=== PATIENT | female | born 1995 | race Caucasian/White ===

== ENCOUNTER 2020-12-13 05:02 | Inpatient (IN) | payer BC, SELFPAY ==
[2020-12-13] VITALS (60 sets, daily range): BP systolic 89–157; BP diastolic 26–105; PULSE 66–166; RESP 12–81; TEMP 36.1–36.9; O2SAT 80–100; BMI 39.1
[2020-12-13] MEDS: AMPICILLIN 2 GM/NS 100 ML 2 GM/100 ML BAG IVPB (05:31)
[2020-12-13] MEDS: LACTATED RINGERS 1,000 ML 125 ML IV CONT ×2 (05:31→09:03)
--- NOTE | 2020-12-13 05:34 | LDADM ---
This patient, Shu Rivas, was admitted to Labor/Delivery/Recovery 103 on 12/13/20 at 05:02. Plans for labor, pain management and were discussed with patient. Patient/family oriented to hospital policies and general routines including ID bracelet, bed and alarms, visiting hours, pain management, procedures, bathroom and other care routines, personal items, smoking policy, room service/diet and guest tray routines, security routines, and visiting hours. Patient/Family are encouraged to report perceived risks to care and to ask questions if they do not understand what they are told or what they should do. See OBIX for further documentation.
[2020-12-13 05:44] LABS: Basophils Percent Auto 0.3 % (0.2-1.2); Eosinophils Percent Auto 0.2 % (0-4.4); Hematocrit 31.8 % (37.0-47.0); Hemoglobin 9.7 g/dL (12.0-15.0); Immature Granulocyte Absolute 0.08 K/mm3 (0.00-0.031); Immature Granulocyte Percent A 0.8 % (0-0.5); Lymphocytes Absolute Auto 2.68 K/mm3 (0.9-3.2); Lymphocytes Percent Auto 25.8 % (18.3-44.2); Mean Corpuscular HGB Conc 30.5 g/dl (32-36); Mean Corpuscular Hemoglobin 21.6 pg (26-34); Mean Corpuscular Volume 70.8 fl (80-100); Mean Platelet Volume 10.5 fl (7.4-10.4); Monocytes Absolute Auto 0.7 K/mm3 (0.1-0.6); Neutrophils Absolute Auto 6.9 K/mm3 (1.3-6.7); Neutrophils Percent Auto 65.9 % (45.5-73.1); Platelet Count Result 284 k/mm3 (150-375); Red Blood Count 4.49 M/mm3 (4.2-5.4); Red Cell Distribution Width 17.4 % (11.5-14.5); White Blood Count 10.4 K/mm3 (4.5-10.0)
[2020-12-13] MEDS: OXYTOCIN 30 UNITS/NS 500 ML 30 UNITS/500 ML BAG IV CONT (05:48)
--- NOTE | 2020-12-13 07:44 | PM.IMHP ---
H&P: HPI History of Present Illness Date/Time: 12/13/20 07:44 25-year-old 2 para 1 whose last menstrual period was 03/13/2020, EDC is 12/18/2020, of presents had to 30 weeks gestation for induction labor is positive strep with favorable cervix she had a 6 week ultrasound confirming dates Chief Complaint: term with positive group B strep Review of Systems Review of Systems: All systems reviewed & are unremarkable except as noted in HPI and below PMFSH Family History Family History Father Hypertension Social History Social History Smoking status: Never smoker Second hand tobacco smoke exposure: No Substance use: never Gender identity (if verbalized by the patient): Female Spiritual care concerns: No Meds Home Medications and Allergies Home Medications Medication Instructions Recorded Confirmed Type PNV cmb#95-ferrous fumarate-FA 1 tablet PO DAILY 11/22/20 11/22/20 History [] ergocalciferol (vitamin D2) 1,250 mcg PO WEEKLY 11/22/20 11/22/20 History [Vitamin D2] Allergies Allergy/AdvReac Type Severity Reaction Status Date / Time Sulfa (Sulfonamide Allergy Intermediate RASH Verified 04/23/19 12:35 Antibiotics) Vital Signs Vital Signs - 24 hr 12/13/20 05:17 12/13/20 05:32 12/13/20 06:01 Temperature 97.2 F L Pulse Rate 78 73 Blood Pressure 129/79 127/85 12/13/20 06:31 12/13/20 07:01 12/13/20 07:31 Temperature Pulse Rate 76 70 67 Blood Pressure 129/88 134/86 129/83 12/13/20 07:42 Temperature 97.3 F L Pulse Rate Blood Pressure Exam Const: General: no acute distress Eyes: General: appearance normal, both eyes and all related structures Neck: Neck: supple and no JVD Thyroid: thyroid normal Resp: Effort & Inspection: normal respiratory effort Auscultation: clear to auscultation bilaterally Cardio: Rate: regular rate Rhythm: regular rhythm GI: Inspection: non-distended GI Palp: Yes Soft to palpation, No Tenderness to palpation present (GI) and No Guarding due to palpation present (GI) Auscultation: normal bowel sounds : External Female Exam: normal external appearance Speculum Exam - Vagina: normal appearance of the vagina Speculum Exam - Cervix: Cervical os closed ( cervix 3.5/75/1. AROM clear. FHTs reassuring) Skin: General skin exam: no rashes or lesions noted Extrem: General: normal to inspection and no edema Psych: Mental Status: mental status grossly normal Affect: normal affect H&P: Results Labs Labs: Short CBC 12/13/20 Range/Units 05:27 WBC 10.4 H (4.5-10.0) K/mm3 Hgb 9.7 L (12.0-15.0) g/dL Hct 31.8 L (37.0-47.0) % Plt Count 284 (150-375) k/mm3 Assessment and Plan Additional Plan impression: Term with positive group B strep and favorable cervix Plan: Medical induction of labor. Group B strep prophylaxis. Spontaneous vaginal delivery is expected. She has an epidural candidate
--- NOTE | 2020-12-13 07:50 | WPDANESEPPF ---
Anes - Initial Pre Proc Eval Procedure: labor epidural Date/Time: 12/13/20 07:50 Surgeon: Serg Montano MD Pre Op Diagnosis: IOL Patient Data Age: 25 Gender: F Height: 1.68 m Weight: 110 kg Last Vital Signs Temp 36.3 C L 12/13/20 07:42 Pulse 67 12/13/20 07:31 BP 129/83 12/13/20 07:31 Allergies Allergy/AdvReac Type Severity Reaction Status Date / Time Sulfa (Sulfonamide Allergy Intermediate RASH Verified 04/23/19 12:35 Antibiotics) Home Medications Medication Instructions Recorded Confirmed Type PNV cmb#95-ferrous fumarate-FA 1 tablet PO DAILY 11/22/20 11/22/20 History [] ergocalciferol (vitamin D2) 1,250 mcg PO WEEKLY 11/22/20 11/22/20 History [Vitamin D2] Laboratory Tests 12/13/20 12/13/20 12/13/20 05:27 05:27 05:27 WBC 10.4 K/mm3 H K/mm3 (4.5-10.0) RBC 4.49 M/mm3 M/mm3 (4.2-5.4) Hgb 9.7 g/dL L g/dL (12.0-15.0) Hct 31.8 % L % (37.0-47.0) MCV 70.8 fl L fl (80-100) MCH 21.6 pg L pg (26-34) MCHC 30.5 g/dl L g/dl (32-36) RDW 17.4 % H % (11.5-14.5) Plt Count 284 k/mm3 k/mm3 (150-375) MPV 10.5 fl H fl (7.4-10.4) Immature Gran % (Auto) 0.8 % H % (0-0.5) Neut % (Auto) 65.9 % % (45.5-73.1) Lymph % (Auto) 25.8 % % (18.3-44.2) Mower % (Auto) 7.0 % % (2.6-8.5) Eos % (Auto) 0.2 % % (0-4.4) Baso % (Auto) 0.3 % % (0.2-1.2) Lymph # (Auto) 2.68 K/mm3 K/mm3 (0.9-3.2) Mower # (Auto) 0.7 K/mm3 H K/mm3 (0.1-0.6) Eos # (Auto) 0.0 K/mm3 K/mm3 (0-0.3) Baso # (Auto) 0.0 K/mm3 K/mm3 (0.0-0.1) Abs Immat Gran (auto) 0.08 K/mm3 H K/mm3 (0.00-0.031) Absolute Neuts (auto) 6.9 K/mm3 H K/mm3 (1.3-6.7) Absolute Nucleated RBC 0.0 K/mm3 K/mm3 (0.0-0.012) Nucleated RBC % 0.0 % % (0.0-0.2) Uric Acid 5.0 mg/dL mg/dL (2.5-7.5) RPR Pending Blood Type Antibody Screen 12/13/20 05:27 WBC RBC Hgb Hct MCV MCH MCHC RDW Plt Count MPV Immature Gran % (Auto) Neut % (Auto) Lymph % (Auto) Mower % (Auto) Eos % (Auto) Baso % (Auto) Lymph # (Auto) Mower # (Auto) Eos # (Auto) Baso # (Auto) Abs Immat Gran (auto) Absolute Neuts (auto) Absolute Nucleated RBC Nucleated RBC % Uric Acid RPR Blood Type A Positive Antibody Screen Negative Patient hx anesthesia problems: none Family hx anesthesia problems: none PMFSH Family History Family History Father Hypertension Social History Social History Smoking status: Never smoker Second hand tobacco smoke exposure: No Substance use: never Gender identity (if verbalized by the patient): Female Spiritual care concerns: No Anes - Eval Final PreProcedure Day of Procedure 12/13/20 07:50 Patient weight: obese Heart: regular rate and rhythm Lungs: clear to auscultation Airway: Mallampati scale class II Neurological: alert and oriented Informed Consent: The patient's anesthetic plan and its attendant risks and benefits were discussed with the patient/family/POA. Questions were solicited and answers provided to the satisfaction of the patient/family/POA.
[2020-12-13 08:29] LABS: Alanine Aminotransferase 15 U/L (4-35); Albumin Level 3.1 g/dL (3.5-5.1); Alkaline Phosphatase 187 U/L (38-126); Anion Gap 5 mmol/L (8-16); Aspartate Amino Transferase 24 U/L (14-36); Bilirubin,Total 0.1 mg/dL (0.2-1.3); Blood Urea Nitrogen 7 mg/dL (7-17); Calcium 8.8 mg/dL (8.4-10.2); Carbon Dioxide 23 mmol/L (22-30); Chloride 107 mmol/L (98-107); Estimated CRCL calculation 177 ml/min; Estimated Glomerular Filt Rate > 60; Glucose 127 mg/dL (65-105); Potassium 3.5 mmol/L (3.4-5.0); Sodium 135 mmol/L (137-145)
[2020-12-13 08:55] LABS: Rapid Plasma Reagin Non-Reactive (NonReactive)
[2020-12-13] MEDS: AMPICILLIN 1 GM/NS 50 ML 1 GM/50 ML BAG IVPB (09:04)
--- NOTE | 2020-12-13 11:14 | PM.OBPRVD ---
OB - Delivery Note Procedure Delivery date: 12/13/20 Procedure: mil/gbs prohpylaxis Intrapartal events: None Induction method: AROM Delivery augmentation: pitocin Delivery monitor: external FHT Route of delivery: Episiotomy description: None Laceration Description: Perineal - 2nd Degree Delivery repair: vicryl Specimen: No Quantitative Blood Loss (ml): 450 Anesthesia type: Epidural Disposition: floor Complications: A large posterior vaginal cyst was seen the drained a large amount of purulence fluid. This significantly weakened the posterior portion of the vagina. Her bleeding remained fairly brisk after repair of the second-degree tear. It appears there is a smaller tear posteriorly and this will now be visualized in the apparatus room to complete the procedure. [place] Baby Date of : 12/13/20 Time of : 10:52 Weeks of gestation at delivery: 39 Weight (pounds): 7 Weight (ounces): 10 presentation: vertex position: Right Occiput Anterior Placenta delivery description: Spontaneous cord vessel description: 3 Vessels score one minute: 9 score five minutes: 9
--- NOTE | 2020-12-13 11:32 | WPDANESEPPF ---
Anes - Initial Pre Proc Eval Procedure: Operation Date: 12/13/20 12:00 Proposed Procedures p REPAIR VAGINAL LACERATION - Serg Montano MD Date/Time: 12/13/20 11:32 Surgeon: Serg Montano MD Pre Op Diagnosis: IOL Patient Data Age: 25 Gender: F Height: 1.68 m Weight: 110 kg Last Vital Signs Temp 36.1 C L 12/13/20 09:34 Pulse 95 12/13/20 11:01 BP 132/68 12/13/20 11:01 Pulse Ox 100 12/13/20 10:23 Allergies Allergy/AdvReac Type Severity Reaction Status Date / Time Sulfa (Sulfonamide Allergy Intermediate RASH Verified 04/23/19 12:35 Antibiotics) Home Medications Medication Instructions Recorded Confirmed Type PNV cmb#95-ferrous fumarate-FA 1 tablet PO DAILY 11/22/20 11/22/20 History [] ergocalciferol (vitamin D2) 1,250 mcg PO WEEKLY 11/22/20 11/22/20 History [Vitamin D2] Laboratory Tests 12/13/20 12/13/20 12/13/20 05:27 05:27 05:27 WBC 10.4 K/mm3 H K/mm3 (4.5-10.0) RBC 4.49 M/mm3 M/mm3 (4.2-5.4) Hgb 9.7 g/dL L g/dL (12.0-15.0) Hct 31.8 % L % (37.0-47.0) MCV 70.8 fl L fl (80-100) MCH 21.6 pg L pg (26-34) MCHC 30.5 g/dl L g/dl (32-36) RDW 17.4 % H % (11.5-14.5) Plt Count 284 k/mm3 k/mm3 (150-375) MPV 10.5 fl H fl (7.4-10.4) Immature Gran % (Auto) 0.8 % H % (0-0.5) Neut % (Auto) 65.9 % % (45.5-73.1) Lymph % (Auto) 25.8 % % (18.3-44.2) Atkinson % (Auto) 7.0 % % (2.6-8.5) Eos % (Auto) 0.2 % % (0-4.4) Baso % (Auto) 0.3 % % (0.2-1.2) Lymph # (Auto) 2.68 K/mm3 K/mm3 (0.9-3.2) Atkinson # (Auto) 0.7 K/mm3 H K/mm3 (0.1-0.6) Eos # (Auto) 0.0 K/mm3 K/mm3 (0-0.3) Baso # (Auto) 0.0 K/mm3 K/mm3 (0.0-0.1) Abs Immat Gran (auto) 0.08 K/mm3 H K/mm3 (0.00-0.031) Absolute Neuts (auto) 6.9 K/mm3 H K/mm3 (1.3-6.7) Absolute Nucleated RBC 0.0 K/mm3 K/mm3 (0.0-0.012) Nucleated RBC % 0.0 % % (0.0-0.2) Sodium Potassium Chloride Carbon Dioxide Anion Gap BUN Creatinine Estim Creat Clear Calc Estimated GFR Glucose Uric Acid 5.0 mg/dL mg/dL (2.5-7.5) Calcium Total Bilirubin AST ALT Alkaline Phosphatase Total Protein Albumin RPR Non-reactive (NonReactive) Blood Type Antibody Screen 12/13/20 12/13/20 05:27 05:27 WBC RBC Hgb Hct MCV MCH MCHC RDW Plt Count MPV Immature Gran % (Auto) Neut % (Auto) Lymph % (Auto) Atkinson % (Auto) Eos % (Auto) Baso % (Auto) Lymph # (Auto) Atkinson # (Auto) Eos # (Auto) Baso # (Auto) Abs Immat Gran (auto) Absolute Neuts (auto) Absolute Nucleated RBC Nucleated RBC % Sodium 135 mmol/L L mmol/L (137-145) Potassium 3.5 mmol/L mmol/L (3.4-5.0) Chloride 107 mmol/L mmol/L (98-107) Carbon Dioxide 23 mmol/L mmol/L (22-30) Anion Gap 5 mmol/L L mmol/L (8-16) BUN 7 mg/dL mg/dL (7-17) Creatinine 0.50 mg/dL L mg/dL (0.7-1.0) Estim Creat Clear Calc 177 ml/min ml/min Estimated GFR > 60 (59 - ) Glucose 127 mg/dL H mg/dL (65-105) Uric Acid Calcium 8.8 mg/dL mg/dL (8.4-10.2) Total Bilirubin 0.1 mg/dL L mg/dL (0.2-1.3) AST 24 U/L U/L (14-36) ALT 15 U/L U/L (4-35) Alkaline Phosphatase 187 U/L H U/L (38-126) Total Protein 6.0 g/dL L g/dL (6.3-8.2) Albumin 3.1 g/dL L g/dL
--- NOTE | 2020-12-13 12:12 | P.OP_ITS ---
Procedure Note - Detailed Date of procedure: 12/13/20 Pre-op diagnosis: IOL Surgeon: Serg Montano MD Postop diagnosis: Vaginal laceration Procedure: Repair of left lateral wall that vaginal laceration Anesthesia: Epidural EBL: 50cc Complications: Findings: A left lateral wall laceration Description of procedure: The patient was taken back after a vaginal delivery and vaginal bleeding seen. She had a large posterior cyst which drained of purulent-appearing substance which appeared to be well approximated however there was vaginal bleeding still noted. She was taken back and prepped and draped in the normal sterile fashion placed in the dorsal lithotomy position. Under excellent epidural anesthesia a weighted speculum placed in posterior fornix of vagina and a 16 Haitian catheter placed in the bladder draining clear urine. On the left lateral sidewall was a laceration which appeared to be minimally bleeding at this point. It was closed with running 0 Vicryl from superior to inferior portion. It was watched closely for some time and no bleeding was seen. The cervix was inspected and noted to be intact and not lacerated. The previous perineal repair appeared intact as well. The vagina was packed with vaginal packing patient was taken to recovery all sponge, need le, instrument counts were correct. There were no immediate complications noted
[2020-12-13] MEDS: LACTATED RINGERS 1,000 ML 30 ML IV CONT (12:13)
--- NOTE | 2020-12-13 12:13 | SUR.OPER ---
epidural catheter removed by matt mabry at 1211. blue tip intact
--- NOTE | 2020-12-13 13:25 | PC.NURSE ---
This patient, Shu Rivas, was received from PACU on 12/13/20 at 1325. Patient/family oriented to unit policies and routines
[2020-12-13 16:35] LABS: Hematocrit 24.9 % (37.0-47.0); Hemoglobin 7.5 g/dL (12.0-15.0)
[2020-12-13] MEDS: IBUPROFEN 600 MG TABLET PO (18:22)
[2020-12-13] MEDS: HYDROcodone/acetaminophen (*CRX) 5-325 MG TABLET 1 TAB PO (18:23)
[2020-12-13] MEDS: DOCUSATE SODIUM 100 MG CAPSULE PO (21:07)
[2020-12-14] VITALS: BP 126/77; PULSE 98; RESP 16; TEMP 36.9; O2SAT 99
[2020-12-14] MEDS: IBUPROFEN 600 MG TABLET PO ×3 (00:51→17:08)
[2020-12-14] MEDS: BENZOCAINE 20% AER SPR (*SP) 56 GM CAN 1 SPRAY (00:53)
[2020-12-14] MEDS: WITCH HAZEL 40 PADS 1 PAD (00:53)
[2020-12-14 04:00] VITALS: BP 125/74; PULSE 80; RESP 16; TEMP 36.7; O2SAT 99
[2020-12-14] MEDS: TETANUS,DIPHTHERIA,AC PERTUSSIS ADULT (0.5 ML) BOOSTRIX IM (05:25)
[2020-12-14 05:52] LABS: Hematocrit 24.9 % (37.0-47.0); Hemoglobin 7.4 g/dL (12.0-15.0)
--- NOTE | 2020-12-14 07:11 | WPDANLDPN2 ---
Anes-Prog Note L&D Date/Time: 12/14/20 07:11 Comfortable throughout: labor and delivery Neuraxial method: epidural Epidural/Spinal procedure site: clean & non-tender Neuro status: Neuro function grossly intact. Cardiovascular status: normal Respiratory status: normal Airway patency: baseline Mental status: baseline Post-Op hydration status: normal Vital Signs: Last Vital Signs Temp 36.7 C 12/14/20 04:00 Pulse 80 12/14/20 04:00 Resp 16 12/14/20 04:00 BP 125/74 12/14/20 04:00 Pulse Ox 99 12/14/20 04:00 Pain score (VAS): 08/15 I/O: Intake & Output 12/13/20 12/13/20 12/14/20 15:59 23:59 07:59 Intake Total 2550 1000 Output Total 450 1150 Balance 2100 -150 Post-procedural complaints: none Patient feedback: Patient satisfied with anesthetic care.
--- NOTE | 2020-12-14 07:53 | P.PNOB_ITS ---
OB - PN: Subj Subjective Date/time seen: 12/14/20 07:53 Patient comments: no complaints and pain well controlled baby status: doing well and nursing well OB - PN: Obj Data Labs CBC & Chem 7: 12/14/20 05:28 12/13/20 05:27 Labs: Laboratory Results - last 24 hr 12/13/20 12/13/20 12/13/20 05:27 05:27 16:21 Hgb 7.5 L Hct 24.9 L Sodium 135 L Potassium 3.5 Chloride 107 Carbon Dioxide 23 Anion Gap 5 L BUN 7 Creatinine 0.50 L Estim Creat Clear Calc 177 Estimated GFR > 60 Glucose 127 H Calcium 8.8 Total Bilirubin 0.1 L AST 24 ALT 15 Alkaline Phosphatase 187 H Total Protein 6.0 L Albumin 3.1 L RPR Non-reactive 12/14/20 05:28 Hgb 7.4 L Hct 24.9 L Sodium Potassium Chloride Carbon Dioxide Anion Gap BUN Creatinine Estim Creat Clear Calc Estimated GFR Glucose Calcium Total Bilirubin AST ALT Alkaline Phosphatase Total Protein Albumin RPR OB - PN A/P Plan day: 1 Plan: routine care Comments: start iron Time Spent With Patient Time: Total time spent is greater than 50% in coordination of care (as documented) at patient's floor/unit and/or counseling patient: Time with patient: less than 15 minutes Review of Systems Review of Systems: All systems reviewed & are unremarkable except as noted in HPI and below Exam Const: General: no acute distress Eyes: General: appearance normal, both eyes and all related structures Neck: Neck: supple and no JVD Thyroid: thyroid normal Resp: Effort & Inspection: normal respiratory effort Auscultation: clear to auscultation bilaterally Cardio: Rate: regular rate Rhythm: regular rhythm GI: Inspection: non-distended GI Palp: Yes Soft to palpation, No Tenderness to palpation present (GI) and No Guarding due to palpation present (GI) Auscultation: normal bowel sounds : General: Yes bladder normal to palpation External Female Exam: normal external appearance Speculum Exam - Vagina: normal vaginal discharge and No vaginal bleeding Speculum Exam - Cervix: nontender Bimanual exam- vagina & uterus: bladder normal to palpation and No Cervical tenderness present OB /external & speculum: No vaginal bleeding Skin: General skin exam: no rashes or lesions noted Extrem: General: normal to inspection and no edema Psych: Mental Status: mental status grossly normal Affect: normal affect
[2020-12-14 08:40] VITALS: BP 127/80; PULSE 91; RESP 16; TEMP 37.1; O2SAT 99
[2020-12-14 09:00] VITALS: PULSE 91; RESP 16; O2SAT 99
[2020-12-14] MEDS: DOCUSATE SODIUM 100 MG CAPSULE PO ×2 (10:11→17:08)
[2020-12-14] MEDS: FERROUS SULFATE 324 MG TABLET PO ×2 (10:12→17:08)
[2020-12-14] MEDS: MULTIVIT/MIN/PREN/FOL AC/IRON TABLET 1 TAB (10:12)
--- NOTE | 2020-12-14 12:30 | PC.NURSE ---
Mother called out for assist with feeding. Consulted with patient, mother reports difficulties with latching first child due to flat nipples. Mother pumped and bottle fed for 11 months with first child. Mother states she did not want the stress with this child and has decided to supplement after feedings if infant does not latch. Mother is pumping every three hours and reports infant has had difficulties with latching. Mother has small blister like areas on both nipples, reporting they began when she discontinued pumping with first child. Mother has a duct bleb with first child and states it did not look like what she has now. Nipple tissue is bulby not smooth. Mother does reports some tenderness if area rubs on pump flange while pumping. Discussed flange size and requested mother call out when ready to pump. Discussed the Latch Assist and use to draw out nipple. Mother is willing to try. Latch assist will draw out right nipple more than left. Reviewed infant feeding cues, frequencies, duration of feedings, feeding elimination flow sheet, and signs of adequate intake. Demonstrated stimulation techniques to wake for feeding. Assisted with to breast. Reviewed positioning/alignment in cross cradle, holding breast in ?U? hold and guided asymmetrical latch on. Infant able to latch correctly after several attempts. nursed eagerly, with steady draws and frequent swallowing noted. Reviewed signs of a correct latch, effective nursing and suck swallow ratio. would slip to shallow latch, mother reports tenderness. Demonstrated how to adjust latch more deeply while feeding. Mother reports she can feel change in latch and has no tenderness. Suggested mother stimulate while feeding to increase stimulate, increase intake and to assist with maintaining deep latch. Advised to hold breast during entire feeding. Instructed mother to call out for RN assistance if she is unable to latch infant for feeding or she has discomfort with nursing. Instructed feeding should be initiated three hours from start of last feeding or if feeding cues are noted before. Mother voiced understanding of information shared. Nipple care reviewed of lanolin after feedings, warm compresses as needed.
--- NOTE | 2020-12-14 15:25 | PC.NURSE ---
Mother called out for assist with feeding. Mother reports attempting and unable to get latched. Left nipple does not draw out as well as right. Reviewed how to roll out nipple and hold to get infant to latch. Assisted with to breast. Reviewed positioning/alignment in cross cradle, holding breast in ?U? hold and guided asymmetrical latch on. Infant switched to football, which was more comfortable for mother. Infant able to latch correctly after several attempts. nursed eagerly, with steady draws and frequent swallowing noted. Reviewed signs of a correct latch, effective nursing and suck swallow ratio. Infant would slip to shallow latch, mother reports tenderness. Demonstrated how to adjust latch more deeply while feeding. Mother reports she can feel change in latch and has no tenderness. Suggested mother stimulate while feeding to increase stimulate, increase intake and to assist with maintaining deep latch. Advised to hold breast during entire feeding.
[2020-12-14 19:08] VITALS: BP 130/82; PULSE 96; RESP 18; TEMP 37.1; O2SAT 99
--- NOTE | 2020-12-15 06:03 | PM.DS ---
DS: Admitting Diagnosis Admitting Diagnosis Admitting Diagnosis: term IUP DS: Summary Hospital Course Hospital Course: the patient was admitted for induction of labor. She underwent spontaneous vaginal delivery. she had bleeding and had an exploratory exam. A small laceration was noted and repaired. The remainder of her hospital course was unremarkable Time Spent with Patient Time attestation: Total time spent providing and/or coordinating discharge services: Exam Const: General: no acute distress Eyes: General: appearance normal, both eyes and all related structures Neck: Neck: supple and no JVD Thyroid: thyroid normal Resp: Effort & Inspection: normal respiratory effort Auscultation: clear to auscultation bilaterally Cardio: Rate: regular rate Rhythm: regular rhythm GI: Inspection: non-distended GI Palp: Yes Soft to palpation, No Tenderness to palpation present (GI) and No Guarding due to palpation present (GI) Auscultation: normal bowel sounds : General: Yes bladder normal to palpation External Female Exam: normal external appearance Speculum Exam - Vagina: normal vaginal discharge and No vaginal bleeding Speculum Exam - Cervix: nontender Bimanual exam- vagina & uterus: bladder normal to palpation and No Cervical tenderness present OB/external & speculum: No vaginal bleeding Skin: General skin exam: no rashes or lesions noted Extrem: General: normal to inspection and no edema Psych: Mental Status: mental status grossly normal Affect: normal affect DS: Data Data Completed and Pending Labs on day of discharge: Labs from last 24 hours 12/14/20 05:28 Hgb 7.4 L Hct 24.9 L Discharge Plan Discharge Attending physician on discharge: Serg Montano Discharging Clinician: Serg Montano Patient Disposition: Home, Self-Care Activity: may shower, no driving and pelvic rest Diet: heart healthy Wound Care Instructions: follow printed instructions Patient Instructions: Antibiotic Form Stand Alone Forms: General Discharge Information Follow-up/Referrals: Serg Montano MD [Physician] - Discharge Medications: Continued ergocalciferol (vitamin D2) [Vitamin D2] 1,250 mcg (50,000 unit) Capsule 1,250 mcg PO WEEKLY RF: 0 PNV cmb#95-ferrous fumarate-FA [] 28 mg iron- 800 mcg Tablet 1 tablet PO DAILY RF: 0 Date of admission: 12/13/20 05:02 Primary Care Provider: True,Christopher J. Admitting Provider: Serg Montano Attending physician on admission: Serg Montano Condition: Stable
--- NOTE | 2020-12-15 06:07 | PM.OBPNVD ---
OB - PN: Subj Subjective Date/time seen: 12/15/20 06:07 Patient comments: no complaints and pain well controlled baby status: doing well and nursing well OB - PN: Obj Data Labs CBC & Chem 7: 12/14/20 05:28 12/13/20 05:27 Labs: Laboratory Results - last 24 hr 12/14/20 05:28 Hgb 7.4 L Hct 24.9 L OB - PN A/P Plan day: 2 Plan: routine care, discharge home and follow up 6 weeks Time Spent With Patient Time: Total time spent is greater than 50% in coordination of care (as documented) at patient's floor/unit and/or counseling patient: Time with patient: less than 15 minutes Review of Systems Review of Systems: All systems reviewed & are unremarkable except as noted in HPI and below Exam Const: General: no acute distress Eyes: General: appearance normal, both eyes and all related structures Neck: Neck: supple and no JVD Thyroid: thyroid normal Resp: Effort & Inspection: normal respiratory effort Auscultation: clear to auscultation bilaterally Cardio: Rate: regular rate Rhythm: regular rhythm GI: Inspection: non-distended GI Palp: Yes Soft to palpation, No Tenderness to palpation present (GI) and No Guarding due to palpation present (GI) Auscultation: normal bowel sounds : General: Yes bladder normal to palpation External Female Exam: normal external appearance Speculum Exam - Vagina: normal vaginal discharge and No vaginal bleeding Speculum Exam - Cervix: nontender Bimanual exam- vagina & uterus: bladder normal to palpation and No Cervical tenderness present OB/external & speculum: No vaginal bleeding Skin: General skin exam: no rashes or lesions noted Extrem: General: normal to inspection and no edema Psych: Mental Status: mental status grossly normal Affect: normal affect
[2020-12-15 08:05] VITALS: BP 127/71; PULSE 86; RESP 16; TEMP 36.9; O2SAT 100
[2020-12-15] MEDS: DOCUSATE SODIUM 100 MG CAPSULE PO (08:13)
[2020-12-15] MEDS: FERROUS SULFATE 324 MG TABLET PO (08:13)
[2020-12-15] MEDS: IBUPROFEN 600 MG TABLET PO (08:13)
--- NOTE | 2020-12-15 09:29 | PC.NURSE ---
Patient viewed the discharge video Mother & Baby Care, The First Two Weeks . Patient was given the opportunity and encouraged to ask questions. Patient verbalized understanding of information shared and has been given the mother/baby guide for home reference.
--- NOTE | 2020-12-15 09:45 | PC.NURSE ---
Consult with pt., mother reports mostly bottle feeding during the night. Mother is pumping without difficulties or discomfort every three hours for 15 minutes. Mother states her milk is transitioning in and pumping up to 20 mls each session. Mother's plans are to continue to attempt to breast most feedings, if he latches she will follow with formula and pump, if he does not latch she will bottle feed and pump. Mother feels this is more eager with attempts and would like to breastfeed if continues to latch. Mother is comfortable with pumping and bottle feeding as she did with fist child. Discussed areas to both nipples, OB did not assess nipples this am. Advised mother if she has any pain or signs or symptoms of infection to call her OB immediately for assessment. Mother denies any tenderness with pumping at this time. Mother is feeding as required and waking to feed if needed. Infant has had [# of feedings] effective feedings in the past 24 hours, and is currently meeting outcomes for weight, output, jaundice and feeding frequencies. Mother states she feels confident to continue current feeding plan above at home. Reviewed transition to breast milk, signs of adequate intake, and engorgement/relief. Instructed to call ICP if intake/output less than required. Reviewed regular medications mother is taking. Information provided per Izzy. Reviewed community resources on the [facility] website and in the Mom/Baby guide. Information on outpatient services provided. Mother has no further questions at this time.
[2020-12-17 09:54] VITALS: BP 126/83; PULSE 88; RESP 16; TEMP 36.6; O2SAT 99
== END 2020-12-15 11:40 | disposition home or self-care (01) | DRG 807 ==
LOC: ANHLDR 11:21 → ANHOB2 13:32
PROVIDERS: Admitting Provider Obstetrics & Gynecology; PCP Pediatrics; Visit Provider Obstetrics & Gynecology
PROC: 10E0XZZ Delivery of Products of Conception, External Approach (ICD-10-PCS; principal; 2020-12-13 12:00)
DX: O99.824 Streptococcus B carrier state complicating childbirth (principal); Z37.0 Single live birth; O71.4 Obstetric high vaginal laceration alone; Z3A.39 39 weeks gestation of pregnancy
CPT/HCPCS: 36415; 80053; 84550; 85014; 85018; 85025; 86592; 86850; 86900; 86901; 90715; A9270; J0290; J2590; J2795; J7120

== ENCOUNTER 2021-01-31 15:14 | Outpatient (CLI) | payer BC, SELFPAY ==
--- NOTE | ~2021-01-31 | US_ITS ---
US breast LT limited 01/31/2021 15:45 Indication: Left breast abscess. Procedure: High-resolution ultrasound of the left breast Comparison: No prior studies for comparison. Findings: At 8:00, 10 cm from the nipple, there is a heterogeneous solid-appearing mass with no signi ficant internal vascularity measuring 9 x 6.5 x 8.6 cm. Impression: 1: Complex predominantly hypoechoic heterogeneous mass of the left breast at 8:00, 10 cm from the nip ple, likely representing phlegmonous change from infection. No definite drainable abscess is identifi ed. Recommend follow-up ultrasound in 2-3 weeks following appropriate therapy to assess for improveme nt/resolution. BI-RADS CATEGORY 3-PROBABLY BENIGN FINDING Reviewed, dictated and finalized at location A. Impression: 1: Complex predominantly hypoechoic heterogeneous mass of the left breast at 8: 00, 10 cm from the nipple, likely representing phlegmonous change from infectio n. No definite drainable abscess is identified. Recommend follow-up ultrasound in 2-3 weeks following appropriate therapy to assess for improvement/resolution . BI-RADS CATEGORY 3-PROBABLY BENIGN FINDING
== END 2021-01-31 15:15 | disposition home or self-care (01) ==
PROVIDERS: PCP Pediatrics; Visit Provider Obstetrics & Gynecology
DX: N61.1 Abscess of the breast and nipple (principal); R92.8 Other abnormal and inconclusive findings on diagnostic imaging of breast
CPT/HCPCS: 76642

== ENCOUNTER → 2021-10-18 01:53 | Outpatient (CLI) | payer BC, SELFPAY ==
[2021-10-18 14:16] LABS: SARS-CoV-2 RNA PCR Negative
== END ==
PROVIDERS: PCP Pediatrics; Visit Provider Obstetrics & Gynecology
DX: Z01.812 Encounter for preprocedural laboratory examination (principal); Z20.822 Contact with and (suspected) exposure to COVID-19
CPT/HCPCS: C9803; U0003; U0005

== ENCOUNTER 2021-10-18 07:47 | Outpatient (CLI) | payer BC, SELFPAY | END 2021-10-18 07:48 | disposition home or self-care (01) | LOC: ANHSURGERY 07:51 | PROVIDERS: Visit Provider Obstetrics & Gynecology | DX: Z01.818 Encounter for other preprocedural examination (principal); N83.209 Unspecified ovarian cyst, unspecified side | CPT/HCPCS: 36415; 86850; 86900; 86901 ==

== ENCOUNTER 2021-10-21 00:20 | Day surgery (SDC) | payer BC, SELFPAY ==
[2021-10-12 09:21] VITALS: BMI 28.3
--- NOTE | 2021-10-12 09:25 | PC.NURSE ---
Report to the Outpatient Waiting Room, entrance under the green pavilion located off [facility], at time __0730_ on date _[id number]_. OR Time: _0930_. - You and your visitor will be asked a series of questions to screen for COVID 19 for your protection. - A mask is required within the hospital. Preoperative COVID Testing Requirements: Covid test 10-18-2021 at 0730 No COVID Test needed if: (proof is required; if not received patient will have Rapid Test prior to entry) - Patient has received COVID Vaccine at least 14 days prior to procedure date or - Patient has positive COVID test result within last 90 days of surgery date. COVID Test needed if above criteria is not met If not COVID vaccinated a COVID test must be conducted within 72 hours of surgery and patient is asked to isolate self from time of testing until procedure. You will go to the [facility] for your COVID testing. [facility] is located at the corner of [address] [facility]. You will only be called if COVID results are positive and your surgeon may reschedule your elective surgery date. Patients may have clear liquids (water, carbonated beverages, clear teas, apple juice) until 3 hours prior to surgery with a maximum of 20 ounces. - No food from midnight until time of surgery - Infants may have breast milk until 4 hours before surgery, formula 6 hours prior to surgery. - Children will be allowed to drink immediately following surgery. If applicable, please bring a bottle or sippy cup to assist with drinking. Juice, water, soda, and popsicles are readily available. For infants on formula, please bring formula the day of surgery. Pacifiers are allowed. Take the following medications with a SIP of water the morning of surgery: Medications to discontinue per physician Date to take last dose Please no make-up, nail liberian, hairspray, perfume, deodorant, or body powder the day of surgery. No jewelry (including any body piercings) or valuables the day of surgery, leave them at home. Please take a shower or bath the night before, or the morning of, surgery with an antibacterial soap. Wear comfortable, loose fitting clothing. Children are encouraged to wear pajamas. - Jewelry must be removed prior to entering the operating room. Rings and piercings that are not removed may be cut off. - The hospital will not accept responsibility for valuables. - Please leave all valuables, including medications, at home the day of surgery. If you are going home after surgery, a licensed shuttle van driver must drive you home. - NO public transportation without another adult. - We recommend that an adult stay with you for 24 hours following discharge. - We also recommend that you do not drive, make important decision, drink alcoholic beverages, or take any drugs that were not prescribed by your health care provider for at least 24 hours after your discharge time. For Pediatric surgeries, we recommend two adults accompany the child home (only one inside the building at this time). One visitor will be allowed to accompany the patient into the hospital. Patients visitor will be instructed to remain with patient at all times or leave the building. We will allow the visitor to come back to the postoperative area when patient is ready. Follow any additional instructions given to you from your surgeon. Telephone instructions given to __Patient__and asked if any additional questions and then verbalized understanding. Patient advised to call surgeon office or pre surgery nurse liaison [phone] if any additional questions.
--- NOTE | 2021-10-19 08:08 | PM.IMHP ---
H&P: HPI History of Present Illness Date/Time: 10/19/21 08:08 18-year-old 2 para 2 admitted for laparoscopic bilateral tubal ligation and right ovarian cystectomy. She has pain discomfort and the ultrasound shows a right ovarian cyst. She understands the tubal to be a permanent and irreversible procedure. Alternatives including not exclusive of pills patches condoms implants etc. reviewed. Failure rate of 10/999 and subsequent risk of ectopic bleeding and reviewed. She received the [employer] handout entitled sterilization for men and women. She had all questions answered. She asked to proceed Chief Complaint: desires permanent sterilization and right ovarian cyst Review of Systems Review of Systems: All systems reviewed & are unremarkable except as noted in HPI and below PMFSH Past Medical History Medical History Asthma Surgical History Surgical History H/O foot surgery History of incision and drainage breast abscess Family History Family History Father Hypertension Social History Social History Smoking status: Never smoker Second hand tobacco smoke exposure: No Substance use: never Gender identity (if verbalized by the patient): Female Spiritual care concerns: No Meds Home Medications and Allergies Home Medications Medication Instructions Recorded Confirmed Type No Home Medications 10/12/21 10/12/21 History Allergies Allergy/AdvReac Type Severity Reaction Status Date / Time Sulfa (Sulfonamide Allergy Intermediate RASH Verified 10/12/21 09:20 Antibiotics) Exam Const: General: no acute distress Eyes: General: appearance normal, both eyes and all related structures Neck: Neck: supple and no JVD Thyroid: thyroid normal Resp: Effort & Inspection: normal respiratory effort Auscultation: clear to auscultation bilaterally Cardio: Rate: regular rate Rhythm: regular rhythm GI: Inspection: non-distended GI Palp: Yes Soft to palpation, No Tenderness to palpation present (GI) and No Guarding due to palpation present (GI) Auscultation: normal bowel sounds : External Female Exam: normal external appearance Speculum Exam - Vagina: normal appearance of the vagina Speculum Exam - Cervix: normal appearance of the cervix Bimanual exam- vagina & uterus: non-tender Bimanual Exam- Adnexa, other: tender on the right Skin: General skin exam: no rashes or lesions noted Extrem: General: normal to inspection and no edema Psych: Mental Status: mental status grossly normal Affect: normal affect Assessment and Plan Additional Plan impression: Desires permanent sterilization right ovarian cyst Plan: Laparoscopic tubal ligation and right ovarian cystectomy on likely salpingo-oophorectomy
[2021-10-21] VITALS (9 sets, daily range): BP systolic 124–136; BP diastolic 70–90; PULSE 60–77; RESP 10–16; TEMP 36.2–36.6; O2SAT 96–100
--- NOTE | 2021-10-21 06:40 | WPDHPUPDATE1 ---
History and Physical Update Update Date/Time: 10/21/21 06:40 History and Physical has been reviewed, including an updated exam of the patient. There are NO changes in the patient's condition. Risks, benefits, and alternatives have been discussed and questions answered. Patient agrees to proceed with procedure.
[2021-10-21] MEDS: ACETAMINOPHEN 500 MG TABLET 1000 MG PO (12:39)
[2021-10-21] MEDS: LACTATED RINGERS 1,000 ML 30 ML IV CONT ×2 (13:06→15:17)
[2021-10-21] MEDS: KETOROLAC 15 MG/ML VIAL (*BKC) IV PUSH (13:15)
--- NOTE | 2021-10-21 13:42 | WPDANESEPPF ---
Anes - Initial Pre Proc Eval Procedure: Operation Date: 10/21/21 14:00 Proposed Procedures p Laparoscopic Bilateral Tubal Sterilization with Fallopian Rings with Laparoscopic Right Ovarian Cystectomy - Serg Montano MD Date/Time: 10/21/21 13:42 Surgeon: Serg Montano MD Pre Op Diagnosis: desires sterlization, right ovarian cyst Patient Data Age: 26 Gender: F Height: 1.68 m Weight: 82.8 kg Last Vital Signs Temp 97.8 F 10/21/21 13:27 Pulse 77 10/21/21 13:27 Resp 16 10/21/21 13:27 BP 124/80 10/21/21 13:27 Pulse Ox 100 10/21/21 13:27 Allergies Allergy/AdvReac Type Severity Reaction Status Date / Time Sulfa (Sulfonamide Allergy Intermediate RASH Verified 10/21/21 12:23 Antibiotics) adhesive AdvReac Intermediate Blister Verified 10/21/21 12:23 Home Medications Medication Instructions Recorded Confirmed Type hydrocodone-acetaminophen 1 tablet PO Q4H PRN #20 tablet 10/21/21 Rx Patient hx anesthesia problems: none Family hx anesthesia problems: none Results Review: All pre-operative results and documents have been reviewed as part of the pre-operative evaluation. PMFSH Past Medical History Medical History Asthma Surgical History Surgical History H/O foot surgery History of incision and drainage breast abscess Family History Family History Father Hypertension Social History Social History Smoking status: Never smoker Second hand tobacco smoke exposure: No Substance use: never Living arrangements: with family Gender identity (if verbalized by the patient): Female Spiritual care concerns: No Anes - Eval Final PreProcedure Day of Procedure 10/21/21 13:42 Patient weight: overweight Heart: regular rate and rhythm Lungs: clear to auscultation Airway: Mallampati scale class II Neurological: alert and oriented Last oral intake: >/= 8 hours ASA classification: II Emergent: no Anesthetic plan: proceed Anesthesia type and monitoring: general ETT and standard monitoring Results Review: All pre-operative results and documents have been reviewed as part of the pre-operative evaluation. Informed Consent: The patient's anesthetic plan and its attendant risks and benefits were discussed with the patient/family/POA. Questions were solicited and answers provided to the satisfaction of the patient/family/POA.
--- NOTE | 2021-10-21 15:08 | W.PM.PROC2 ---
Procedure Note - Detailed Date of Procedure 10/21/21 Pre-op Diagnosis desires sterlization, right ovarian cyst Post-op Diagnosis Other (With right dermoid cyst) Procedure Performed Laparoscopic right salpingo-oophorectomy and left tubal ligation with silastic ring Surgeon Serg Motnano MD Anesthesia General Indications This is a 26-year-old female who desires permanent sterilization with complex right ovarian cyst Findings Normal-appearing uterus left ovary right and left tube and a large dermoid cyst which encompassed the entire right ovary Description of Procedure The patient was prepped draped in the normal sterile fashion placed in the dorsal lithotomy position. Under excellent general trach anesthesia weighted speculum placed in posterior fornix vagina. Anterior lip of the cervix grasped with single-tooth tenaculum and the Garzon's cannula inserted to the cervix. These were attached to be used later for uterine manipulation. The catheter was placed to drain the bladder of clear urine. The weighted speculum was removed the gloves were changed. An infraumbilical incision made Veress needle passed in the abdomen. Abdomen filled with CO2 gas [id number]. T the 5mm trocar was passed in the abdomen. Downside visualized no injury seen. Gas reattached the patient placed in Trendelenburg. 5mm trocar incision made and the trocar advanced in the suprapubic area under direct visualization assuring no injury. This large complex cyst was seen on the right and decision was made to remove it in entirety as it appeared to be a dermoid cyst. A right lower quadrant incision made the 10mm trocar advanced under direct visualization assuring no injury. The right infundibulopelvic structure was skeletonized. This was clamped, burned, cut with the LigaSure and then placed in an Endo-Catch. The left fallopian tube was then grasped with a fallopian tube grasper the fallopian tube ring was placed at the midportion in good blanching was noted. Photo documentation was undertaken. No other abnormalities were seen. The trocars were removed after gas removed from the abdomen. The incisions closed with 4-0 Monocryl and glue. The patient went to recovery in satisfactory condition. All sponge, needle, instrument counts were correct. There were no immediate complications Estimated Blood Loss 25 Drains No Packing No Pathology Yes Complications No immediate complications Condition Stable Disposition PACU
[2021-10-21] MEDS: fentaNYL CITRATE INJ (*CRX) 100 MCG/2 ML VIAL 25 MCG IV PUSH ×2 (15:33→15:48)
[2021-10-21] MEDS: ONDANSETRON INJ 4 MG/2 ML VIAL IV PUSH (16:26)
--- NOTE | 2021-10-21 16:45 | SUR.PHASEII ---
1600- Vital signs and assessment charted as being at 1332 when actually they were the assessment and vital signs were for 1537. given medication for nausea.
--- NOTE | 2021-10-21 17:20 | SUR.PHASEII ---
1715- emesis after iv out, while dressing. medicated for same earlier.
== END 2021-10-21 17:25 | disposition home or self-care (01) ==
PROVIDERS: Visit Provider Obstetrics & Gynecology
PROC: (CPT 58671; principal; 2021-10-21 14:00)
DX: Z30.2 Encounter for sterilization (principal); D27.0 Benign neoplasm of right ovary; J45.909 Unspecified asthma, uncomplicated
CPT/HCPCS: 58661; 58671; 88302; 88305; A4264; A9270; J0330; J1100; J1170; J1885; J2250; J2405; J2704; J2710; J3010; J7030; J7120